=== PATIENT | female | born 1960 | race Caucasian/White ===

== ENCOUNTER 2018-03-29 02:53 | Observation (INO) ==
[2018-03-29 04:39] LABS: Baso # (Auto) 0.1 th/mm3 (0.0-0.2); Baso % (Auto) 0.6 % (0.0-2.0); Eos % (Auto) 0.2 % (0.0-4.0); Hematocrit 38.9 % (35.0-46.0); Hemoglobin 13.4 gm/dL (11.6-15.3); Lymph # (Auto) 3.2 th/mm3 (1.0-4.8); Lymph % (Auto) 26.1 % (9.0-44.0); Mean Corpuscular HGB Conc 34.4 % (32.0-36.0); Mean Corpuscular Hemoglobin 29.6 pg (27.0-34.0); Mean Corpuscular Volume 85.9 fL (80.0-100.0); Mean Platelet Volume 7.8 fL (7.0-11.0); Mono # (Auto) 0.8 th/mm3 (0.0-0.9); Mono % (Auto) 6.6 % (0.0-8.0); Neut # (Auto) 8.2 th/mm3 (1.8-7.7); Neut % (Auto) 66.5 % (16.0-70.0); Platelet Count 303 th/mm3 (150-450); Red Blood Count 4.53 mil/mm3 (4.00-5.30); Red Cell Distribution Width 14.3 % (11.6-17.2); White Blood Count 12.3 th/mm3 (4.0-11.0)
--- NOTE | 2018-03-29 04:45 | XR ---
EXAM DATE: 03/29/2018 4:32 AM EDT AGE/SEX: 57 years / Female INDICATIONS: Chest pain and short of breath. CLINICAL DATA: This is the patient's initial encounter. Patient reports that signs and symptoms have been present for 1 day and indicates a pain score of 5/10. MEDICAL/SURGICAL HISTORY: Hypertension. Carcinoma, lung. Carcinoma, breast. A-fib. TIA. Ch olecystectomy. Rt lung lobectomy. Bilateral mastectomy. COMPARISON: POI, XR CHEST PA AND LAT, 08/16/2017. . FINDINGS: Portable AP view of the chest demonstrates a normal-sized cardiac silhouette with stable signs of vol ume loss in the right hemithorax likely related to prior surgery. No pleural effusion, airspace conso lidation, or pneumothorax is identified. EKG lines overlie the patient. Multiple clips overlie the ax illary regions bilaterally. CONCLUSION: Stable chest x-ray. No acute cardiopulmonary abnormality is identified. Electronically signed by: Eduardo Vang MD 03/29/2018 4:43 AM EDT
[2018-03-29 04:47] LABS: Activated Partial Thrombo Time 34.4 sec (24.3-30.1); INR 1.3 Ratio; Prothrombin Time 12.7 sec (9.8-11.6)
[2018-03-29 04:59] LABS: Anion Gap 9 meq/L (5-15); Blood Urea Nitrogen 18 mg/dL (7-18); Calcium 9.1 mg/dL (8.5-10.1); Carbon Dioxide 23.4 meq/L (21.0-32.0); Chloride 106 meq/L (98-107); Glomerular Filtration Rate 56 mL/min (>89); Glucose,Random 110 mg/dL (74-106); Potassium 3.7 meq/L (3.5-5.1); Sodium 138 meq/L (136-145)
[2018-03-29 05:55] LABS: Bilirubin,Urine Negative (Negative); Clarity,Urine Clear (Clear); Color,Urine Colorless (Yellw/Straw); Glucose,Urine (UA) Negative (Negative); Leukocyte Esterase,Urine Negative (Negative); Mucus,Urine Few /lpf (Occasional); Nitrite,Urine Negative (Negative); Specific Gravity,Urine 1.002 (1.002-1.035)
--- NOTE | 2018-03-29 07:16 | ED ---
HPI General Chief Complaint: Chest Pain Stated Complaint: chest pain/hard to breath Time Seen by Provider: 03/29/18 03:37 History of Present Illness HPI narrative: Patient is a 57-year-old female presents the emergency department with chief complaint of chest pain wrapping around to her back. The pain began early this morning and has been constant. It is mid sternal and does not radiate. Patient denies shortness of breath. Complete Quality Measures for STEMI Alert Patients Related Data Home Medications Medication Instructions Recorded Confirmed alprazolam 1 mg PO Q6HR PRN 03/29/18 03/29/18 diltiazem HCl 120 mg PO DAILY 03/29/18 03/29/18 gemfibrozil 600 mg PO BID 03/29/18 03/29/18 hydrocodone-acetaminophen 1 tab PO Q6H PRN 03/29/18 03/29/18 ranitidine HCl 150 mg PO BID 03/29/18 03/29/18 rivaroxaban [Xarelto] 20 mg PO DAILY 03/29/18 03/29/18 Allergies Allergy/AdvReac Type Severity Reaction Status Date / Time Penicillins Allergy Rash Verified 03/29/18 03:06 Review of Systems ROS: all other systems reviewed are negative Cardiovascular Reports chest pain, Denies pedal edema and Denies edema Respiratory Denies dyspnea and Denies dyspnea on exertion Musculoskeletal Reports back pain PMFSH Medical History Medical History Afib (Acute) Anxiety (Acute) Emphysema of lung (Acute) Lung cancer (Acute) Skin cancer of forehead (Acute) TIA (transient ischemic attack) (Acute) Social History Social History Substance History: No History of Abuse Second Hand Smoke Exposure: No Smoking Status: Former smoker Tobacco Type: Cigarettes Packs Per Day: 2 (quit 2013) Cigarettes Per Day: 40.0 Years Smoked: 35 Pack-Years: 70.00 years: 70 How Often Do You Have a Drink Containing Alcohol: Never Recent Travel in [facility] within the Last 8 Weeks: No Recent Out of Country Travel within the Last 8 Weeks: No Immunization History Tetanus Immunization: Unsure Hx Influenza Vaccine This Season: No Exam Narrative Exam Narrative: GENERAL: 57-year-old female in no distress SKIN: Focused skin assessment warm/dry. HEAD: Atraumatic. Normocephalic. EYES: Pupils equal and round. No scleral icterus. No injection or drainage. ENT: No nasal bleeding or discharge. Mucous membranes pink and moist. NECK: Trachea midline. No JVD. CARDIOVASCULAR: Regular rate and rhythm. No murmur appreciated. RESPIRATORY: No accessory muscle use. Clear to auscultation. Breath sounds equal bilaterally. Patient has multiple scars from prior lobectomy GASTROINTESTINAL: Abdomen soft, non-tender, nondistended. Hepatic and splenic margins not palpable. MUSCULOSKELETAL: No obvious deformities. No clubbing. No cyanosis. No edema. Course Initial Documented Vital Signs Temperature 98.3 F 03/29/18 03:06 Pulse Rate 88 03/29/18 03:06 Respiratory Rate 20 03/29/18 03:06 Blood Pressure 145/67 H 03/29/18 03:06 Pulse Oximetry 98 03/29/18 03:06 Last Documented Vital Signs Temperature 97.9 F 03/29/18 10:37 Pulse Rate 73 03/29/18 10:37 Respiratory Rate 16 03/29/18 10:37 Blood Pressure 119/67 03/29/18 10:37 Pulse Oximetry 98 03/29/18 10:37 Medical Decision Making MDM Narrative Medical decision making narrative: Patient was seen and evaluated in the emergency department. She was placed in the chest pain unit for further evaluation and treatment Lab Data Result diagrams: 03/29/18 04:14 03/29/18 04:14 Lab Results 03/29/18 03/29/18 03/29/18 Range/Units 04:14 04:14 04:14 WBC 12.3 H (4.0-11.0) th/mm3 RBC 4.53 (4.00-5.30) mil/mm3 Hgb 13.4 (11.6-15.3) gm/dL Hct 38.9 (35.0-46.0) % MCV 85.9 (80.0-100.0) fL MCH 29.6 (27.0-34.0) pg MCHC 34.4 (32.0-36.0) % RDW 14.3 (11.6-17.2) % Plt Count 303 (150-450) th/mm3 MPV 7.8 (7.0-11.0) fL Neut % (Auto) 66.5 (16.0-70.0) % Lymph % (Auto) 26.1 (9.0-44.0) % [place] % (Auto) 6.6 (0.0-8.0) % Eos % (Auto) 0.2 (0.0-4.0) % Baso % (Auto) 0.6 (0.0-2.0) % Neut # (Auto) 8.2 H (1.8-7.7) th/mm3 Lymph # (Auto) 3.2 (1.0-4.8) th/mm3 [place] # (Auto) 0.8 (0.0-0.9) th/mm3 Eos # (Auto) 0.0 (0.0-0.4) th/mm3 Baso # (Auto) 0.1 (0.0-0.2) th/mm3 WBC Differential . Differential Comment Auto diff final PT 12.7 H (9.8-11.6) sec INR 1.3 Ratio APTT 34.4 H (24.3-30.1) sec Sodium 138 (136-145) meq/L Potassium 3.7 (3.5-5.1) meq/L Chloride 106 (98-107) meq/L Carbon Dioxide 23.4 (21.0-32.0) meq/L Anion Gap 9 (5-15) meq/L BUN 18 (7-18) mg/dL Creatinine 1.02 H (0.50-1.00) mg/dL Estimated GFR 56 L (>89) mL/min Random Glucose 110 H (74-106) mg/dL Calcium 9.1 (8.5-10.1) mg/dL Total Creatine Kinase (26-192) U/L Troponin I Less than 0.02 L (0.02-0.05) ng/mL Urine Color (Yellw/Straw) Urine Clarity (Clear) Urine pH (5.0-8.5) Ur Specific [place] (1.002-1.035) Urine Protein (Neg-Trace) mg/dL Urine Glucose (UA) (Negative) mg/dL Urine Ketones (Negative) mg/dL Urine Occult Blood (Negative) Urine Nitrate (Negative) Urine Bilirubin (Negative) Urine Urobilinogen (Less than 2) mg/dL Ur Leukocyte Esterase (Negative) Urine WBC (0-5) /hpf Urine Mucus (Occasional) /lpf 03/29/18 03/29/18 Range/Units 05:30 09:09 WBC (4.0-11.0) th/mm3 RBC (4.00-5.30) mil/mm3 Hgb (11.6-15.3) gm/dL Hct (35.0-46.0) % MCV (80.0-100.0) fL MCH (27.0-34.0) pg MCHC (32.0-36.0) % RDW (11.6-17.2) % Plt Count (150-450) th/mm3 MPV (7.0-11.0) fL Neut % (Auto) (16.0-70.0) % Lymph % (Auto) (9.0-44.0) % [place] % (Auto) (0.0-8.0) % Eos % (Auto) (0.0-4.0) % Baso % (Auto) (0.0-2.0) % Neut # (Auto) (1.8-7.7) th/mm3 Lymph # (Auto) (1.0-4.8) th/mm3 [place] # (Auto) (0.0-0.9) th/mm3 Eos # (Auto) (0.0-0.4) th/mm3 Baso # (Auto) (0.0-0.2) th/mm3 WBC Differential Differential Comment PT (9.8-11.6) sec INR Ratio APTT (24.3-30.1) sec Sodium (136-145) meq/L Potassium (3.5-5.1) meq/L Chloride (98-107) meq/L Carbon Dioxide (21.0-32.0) meq/L Anion Gap (5-15) meq/L BUN (7-18) mg/dL Creatinine (0.50-1.00) mg/dL Estimated GFR (>89) mL/min Random Glucose (74-106) mg/dL Calcium (8.5-10.1) mg/dL Total Creatine Kinase 85 (26-192) U/L Troponin I Less than 0.02 L (0.02-0.05) ng/mL Urine Color Colorless (Yellw/Straw) Urine Clarity Clear (Clear) Urine pH 5.0 (5.0-8.5) Ur Specific [place] 1.002 (1.002-1.035) Urine Protein Negative (Neg-Trace) mg/dL Urine Glucose (UA) Negative (Negative) mg/dL Urine Ketones Negative (Negative) mg/dL Urine Occult Blood Small H (Negative) Urine Nitrate Negative (Negative) Urine Bilirubin Negative (Negative) Urine Urobilinogen Less than 2 (Less than 2) mg/dL Ur Leukocyte Esterase Negative (Negative) Urine WBC Less than 1 (0-5) /hpf Urine Mucus Few H (Occasional) /lpf Imaging Data Radiologist's impression: Chest X-Ray 03/29/18 03:53 CONCLUSION: Stable chest x-ray. No acute cardiopulmonary abnormality is identified. Discharge Plan Discharge Disposition Patient Disposition: 30 Still Patient Discharge Condition Condition: Stable Discharge Order Discharge Orders: Discharge Order (Routine); Ordered 03/29/18 Ordered By: Kenzie Louis Discharge Details Anticipated Discharge Date: 03/29/18 Diagnosis: Chest pain Physicians Team ED Provider: Katarina Dill Primary Care Provider: Kiet Gaytan Attending Provider: Julien Montoya Status ED Status: Left Department Discharge Information Discharge Date/Time: 03/29/18 10:21
[2018-03-29] MEDS ORDERED: Acetaminophen 500 MG Tablet PO PRN (09:35)
--- NOTE | 2018-03-29 09:35 | P.HPCA ---
History of Present Illness Primary Care Physician: Kiet Gaytan Chief Complaint: Chest pain History of Present Illness: 57 year old female with history of atrial fibrillation, emphysema, TIA, and anxiety presents to ER for further evaluation of chest pain. Onset 11 PM. Location epigastric, right and left inframammary area, and across midback. Characterized as burning. Endorses reflux of "hot liquid" in esophagus. No associated symptoms of nausea, vomiting, dyspnea, or diaphoresis. Moderate to severe in severity. Precipitating factors she relates to recent steroid use and eating a heavy meal around 730pm. Started steroid pack , took 6 tablets yesterday. Unable to sit during acute episode, walking eased up pain somewhat. Took Tums and GasX with some relief. Duration 4-5 hours, discomfort gradually eased up and completely gone at this time. Endorses similar pain in the past, leading her to have multiple nuclear scans. Reports all cardiac testing within normal limits. Follows with Dr. Poe for transient afib, recently seen 3 months ago. No recent cardiac testing. No known coronary artery disease or stenting. No recent illness or injury. Family history noncontributory for early onset cardiovascular disease. - Diagnosis (1) Atypical chest pain (2) GERD (gastroesophageal reflux disease) (3) Transient atrial fibrillation Review of Systems All other systems reviewed negative except as stated in [facility] - History History Provided By: Patient - Medical History Medical History: Medical History (Last Updated 03/29/18 @ 13:08 by KAYY Sutherland) Afib Anxiety Emphysema of lung Lung cancer Skin cancer of forehead TIA (transient ischemic attack) - Surgical History Surgical History: Surgical History (Last Reviewed 03/29/18 @ 13:08 by KAYY Sutherland) H/O breast reconstruction History of lobectomy of lung Hx of bilateral mastectomy - Tobacco History Second Hand Smoke Exposure: No Tobacco Use In Past 30 Days: No Smoking Status: Former smoker Packs Per Day: 2 (quit 2013) Years Smoked: 35 years: 69 - Alcohol History How Often Do You Have a Drink Containing Alcohol: Never - Substance Use History Substance History: No History of Abuse - Travel History Recent Travel in the [place] Within the Last 8 Weeks: No Recent Travel Out of the Country Within the Last 8 Weeks: No - Immunization History Tetanus Immunization: Unsure Hx Influenza Vaccine This Season: No Medications and Allergies Active Medications: Active Medications Sodium Chloride (Ns Flush) 2 ml IV.FLUSH UNSCH PRN PRN Reason: FLUSH AFTER USING IV ACCESS Sodium Chloride (Ns Flush) 2 ml IV.FLUSH BID KYARA Sodium Chloride (Ns Flush) 2 ml IV.FLUSH PRN PRN PRN Reason: FLUSH AFTER USING IV ACCESS Allergies Allergy/AdvReac Type Severity Reaction Status Date / Time Penicillins Allergy Rash Verified 03/29/18 03:06 Home Medications Medication Instructions Recorded Confirmed Type alprazolam 1 mg PO Q6HR PRN 03/29/18 03/29/18 History diltiazem HCl 120 mg PO DAILY 03/29/18 03/29/18 History gemfibrozil 600 mg PO BID 03/29/18 03/29/18 History hydrocodone-acetaminophen 1 tab PO Q6H PRN 03/29/18 03/29/18 History ranitidine HCl 150 mg PO BID 03/29/18 03/29/18 History rivaroxaban [Xarelto] 20 mg PO DAILY 03/29/18 03/29/18 History Exam Vital signs: Vital Signs 03/29/18 03:06 03/29/18 03:32 03/29/18 04:14 Temperature 98.3 F Pulse Rate 88 86 71 Respiratory Rate 20 18 Blood Pressure 145/67 H 145/79 H Pulse Oximetry 98 99 98 03/29/18 04:24 03/29/18 04:32 03/29/18 04:33 Temperature Pulse Rate 79 90 Respiratory Rate 18 17 18 Blood Pressure 150/71 H 123/62 Pulse Oximetry 97 97 03/29/18 05:51 03/29/18 07:15 03/29/18 08:01 Temperature Pulse Rate 70 76 Respiratory Rate 18 17 Blood Pressure 107/56 L 120/65 Pulse Oximetry 97 98 94 L Intake & Output 03/28/18 03/29/18 03/29/18 18:59 06:59 18:59 Weight 90.718 kg Narrative: GENERAL: Alert WN, WD, NAD, pleasant, female who appears older than stated age, moderately obese HEAD: NC, AT EYES: Sclera clear, conjunctiva without injection, pupils equal and round ENT: Mucous membranes pink and moist NECK: Supple, no masses, trachea midline CV: RRR, without murmur, rub, gallop, or JVD. Chest wall nontender to palpation. RESP: Clear lungs throughout bilateral, no crackles, wheeze, rhonchi, symmetrical chest rise, nonlabored, able to speak in full sentences ABD: Soft, NT, ND, no masses, positive bowel tones EXT: Pulses +2x4, no dependent edema, bilateral upper extremities lymphedema MS: Normal tone x4 extremities, nontender, no obvious deformities, full range of motion NEURO: CN II through CN XII grossly intact, motor strength 5/5 PSYCH: A+O x3, pleasant affect, appropriate speech, mood, insight and judgment SKIN: Normal turgor, normal texture, no lesions, no rashes, brisk cap refill, even hair distribution, surgical scars bilateral midback Results 03/29/18 04:14 03/29/18 04:14 Cardiac Enzymes 03/29/18 Range/Units 04:14 Troponin I Less than 0.02 L (0.02-0.05) ng/mL Coagulation 03/29/18 Range/Units 04:14 PT 12.7 H (9.8-11.6) sec APTT 34.4 H (24.3-30.1) sec CBC 03/29/18 Range/Units 04:14 WBC 12.3 H (4.0-11.0) th/mm3 RBC 4.53 (4.00-5.30) mil/mm3 Hgb 13.4 (11.6-15.3) gm/dL Hct 38.9 (35.0-46.0) % Plt Count 303 (150-450) th/mm3 Neut # (Auto) 8.2 H (1.8-7.7) th/mm3 Lymph # (Auto) 3.2 (1.0-4.8) th/mm3 [place] # (Auto) 0.8 (0.0-0.9) th/mm3 Eos # (Auto) 0.0 (0.0-0.4) th/mm3 Baso # (Auto) 0.1 (0.0-0.2) th/mm3 Comprehensive Metabolic Panel 03/29/18 Range/Units 04:14 Sodium 138 (136-145) meq/L Potassium 3.7 (3.5-5.1) meq/L Chloride 106 (98-107) meq/L Carbon Dioxide 23.4 (21.0-32.0) meq/L BUN 18 (7-18) mg/dL Creatinine 1.02 H (0.50-1.00) mg/dL Calcium 9.1 (8.5-10.1) mg/dL Intake and Output 03/28/18 03/29/18 03/29/18 22:59 06:59 14:59 Other: Weight 90.718 kg EKG interpretations - EKG EKG results cardiology: WNL, sinus rhythm, normal axis, normal QRS Caprini VTE Risk Assessment Caprini VTE Risk Assessment: No/Low Risk (score <= 1) Caprini Risk Assessment Model: Point Value = 1 Point Value = 2 Point Value = 3 Point Value = 5 Age 41-60 Minor surgery BMI > 25 kg/m2 Swollen legs Varicose veins or History of unexplained or recurrent spontaneous Oral contraceptives or hormone replacement Sepsis (< 1 month) Serious lung disease, including pneumonia (< 1 month) Abnormal pulmonary function Acute myocardial infarction Congestive heart failure (< 1 month) History of inflammatory bowel disease Medical patient at bed rest Age 61-74 Arthroscopic surgery Major open surgery (> 45 min) Laparoscopic surgery (> 45 min) Malignancy Confined to bed (> 72 hours) Immobilizing plaster cast Central venous access Age >= 75 History of VTE Family history of VTE Factor V Leiden Prothrombin [id number] Lupus anticoagulant Anticardiolipin antibodies Elevated serum homocysteine Heparin-induced thrombocytopenia Other congenital or acquired thrombophilia Stroke (< 1 month) Elective arthroplasty Hip, pelvis, or leg fracture Acute spinal cord injury (< 1 month) Prophylaxis Regimen: Total Risk Factor Score Risk Level Prophylaxis Regimen 0-1 Low Early ambulation 2 Moderate Order ONE of the following: *Sequential Compression Device (SCD) *Heparin 5000 units SQ BID 3-4 Higher Order ONE of the following medications: *Heparin 5000 units SQ TID *Enoxaparin/Lovenox 40 mg SQ daily (WT < 150 kg, CrCl > 30 mL/min) *Enoxaparin/Lovenox 30 mg SQ daily (WT < 150 kg, CrCl > 10-29 mL/min) *Enoxaparin/Lovenox 30 mg SQ BID (WT < 150 kg, CrCl > 30 mL/min) AND/OR *Sequential Compression Device (SCD) 5 or more Highest Order ONE of the following medications: *Heparin 5000 units SQ TID (Preferred with Epidurals) *Enoxaparin/Lovenox 40 mg SQ daily (WT < 150 kg, CrCl > 30 mL/min) *Enoxaparin/Lovenox 30 mg SQ daily (WT < 150 kg, CrCl > 10-29 mL/min) *Enoxaparin/Lovenox 30 mg SQ BID (WT < 150 kg, CrCl > 30 mL/min) AND *Sequential Compression Device (SCD) Assessment and Plan - Assessment (1) Atypical chest pain Code(s): R07.89 - Other chest pain Status: Acute Plan: Admitted to chest pain center. ACS ruled out with 3 sets of EKGs and cardiac enzymes. Seen and evaluated by Dr. Isaiah Santoyo. No further cardiac testing at this time. Discharge home today with follow-up with Dr. Poe and PCP next week. Discomfort highly suggestive of GI in etiology. Symptoms completely resolved. (2) GERD (gastroesophageal reflux disease) Code(s): K21.9 - Gastro-esophageal reflux disease without esophagitis Status: Resolved Plan: Symptoms resolved. Continue ranitidine. Follow-up with primary care provider. (3) Transient atrial fibrillation Code(s): I48.91 - Unspecified atrial fibrillation Status: Chronic Plan: Continue Xarelto and diltiazem upon discharge. Patient took both early this morning prior to arrival to ER. (2) GERD (gastroesophageal reflux disease) Qualifiers: Esophagitis presence: esophagitis presence not specified Qualified Code(s): K21.9 - Gastro-esophageal reflux disease without esophagitis
[2018-03-29 09:46] VITALS: RESP 16
--- NOTE | 2018-03-29 09:51 | ECG ---
Date Performed: 03/29/2018 Time Performed: 04:25:33 PTAGE: 57 years EKG: Sinus rhythm NORMAL ECG NO PREVIOUS TRACING DOCTOR: Sergio Dowell Interpretating Date/Time 03/29/2018 09:50:32
[2018-03-29 10:02] LABS: Creatine Kinase 85 U/L (26-192)
[2018-03-29 10:37] VITALS: BP 119/67; PULSE 73; TEMP 97.9; O2SAT 98
--- NOTE | 2018-03-29 12:20 | ECG ---
Date Performed: 03/29/2018 Time Performed: 01:54:58 PTAGE: 57 years EKG: Sinus rhythm NORMAL ECG INTERPRETATION BASED ON A DEFAULT AGE OF 39 YEARS PREVIOUS TRACING : 08/27/2005 11.33 DOCTOR: Sergio Dowell Interpretating Date/Time 03/29/2018 12:19:40
--- NOTE | 2018-03-29 12:42 | P.PNCA ---
Subjective Interval history: The patient was presented by the nurse practitioner, documentation, laboratory, radiographic and electrocardiographic data was all reviewed. The patient was then personally seen and examined. I am in agreement with the documentation as entered. I concur that the presentation is of a GI etiology precipitated by 2 days of high-dose prednisone and dietary indiscretion. This has been relieved by GI cocktail and she has had no further discomfort in the emergency room. She is closely followed by Dr. lynch at 3 month intervals and has recently been evaluated with serial EKGs Holter monitor and an echo. She has a complex past medical history of COPD , lung cancer status post right lobectomy, bilateral mastectomies, and GERD. Evaluation currently with enzymes and EKGs 2 are entirely normal and symptoms have resolved completely. She is reticent to have further blood draws and since additional evaluation was not felt appropriate at this time she will be allowed to discharge early. Physical Exam Vital signs: Vital Signs 03/29/18 03:06 03/29/18 03:32 03/29/18 04:14 Temperature 98.3 F Pulse Rate 88 86 71 Respiratory Rate 20 18 Blood Pressure 145/67 H 145/79 H Pulse Oximetry 98 99 98 03/29/18 04:24 03/29/18 04:32 03/29/18 04:33 Temperature Pulse Rate 79 90 Respiratory Rate 18 17 18 Blood Pressure 150/71 H 123/62 Pulse Oximetry 97 97 03/29/18 05:51 03/29/18 07:15 03/29/18 08:01 Temperature Pulse Rate 70 76 Respiratory Rate 18 17 Blood Pressure 107/56 L 120/65 Pulse Oximetry 97 98 94 L 03/29/18 09:45 03/29/18 10:37 Temperature 97.9 F Pulse Rate 71 73 Respiratory Rate 16 16 Blood Pressure 111/63 119/67 Pulse Oximetry 99 98 Intake & Output 03/28/18 03/29/18 03/29/18 18:59 06:59 18:59 Weight 90.718 kg Narrative: I am in agreement with physical exam is documented. Respiratory, cardiovascular , and abdominal evaluation were personally repeated. Abdominal evaluation currently shows a soft abdomen with no guarding or rebound no hepatosplenomegaly Assessment and Plan - Plan Patient symptoms were consistent with GI etiology and have entirely resolved. Her cardiac evaluation is negative 2. She is closely followed on an outpatient basis by Dr. quadrat so further evaluation at this time was not felt absolutely necessary. She prefers not have further blood draws so will be discharged for outpatient follow-up with her primary care physician and with her coffee taster. - Attending Attestation I attest that this patient's presentation meets criteria for evaluation and care as offered today.
--- NOTE | 2018-03-30 08:42 | ECG ---
Date Performed: 03/29/2018 Time Performed: 09:11:47 PTAGE: 57 years EKG: Sinus rhythm NORMAL ECG PREVIOUS TRACING : 03/29/2018 04.25 DOCTOR: Sergio Dowell Interpretating Date/Time 03/30/2018 08:33:02
== END 2018-03-29 16:47 | disposition home or self-care (01) ==
LOC: NEPHCDU 02:53 → NEDA 02:53 → NEPC 02:53 → NEDA 10:21 → NEPHCDU 10:27
PROVIDERS: ADMIT Internal Medicine Cardiovascular Disease; ATTEND Internal Medicine Cardiovascular Disease